=== PATIENT | male | born 1975 | race Caucasian/White ===

== ENCOUNTER 2023-10-08 20:49 | Emergency (ER) | payer BC, OTHER ==
[2023-10-08] MEDS ORDERED: TETRACAINE HCL 0.5% 4ML OPTH ONE (22:20)
[2023-10-08] MEDS ORDERED: FLUORESCEIN SODIUM 1 MG/WRAP ONE (22:20)
--- NOTE | 2023-10-08 22:33 | ER ---
Nurse's Notes [facility] Name: Celio Damon II Age: 48 yrs Sex: Male : 1975 Arrival Date: 10/08/2023 Time: 20:49 Bed 10 Private MD: Diagnosis: Corneal abrasion of right eye Presentation: 10/07 22:27 Chief complaint: Patient states: right eye pain, redness and swelling X3 hours after lg3 mowing. Coronavirus screen: Client denies travel out of the [place] in the last 14 days. At this time, the client does not indicate any symptoms associated with coronavirus-19. Ebola Screen: No symptoms or risks identified at this time. Mechanism of Injury: No Mechanism of Injury. The patient denies any loss of vision. Initial Sepsis Screen: Does the patient meet any 2 criteria? No. Patient's initial sepsis screen is negative. Does the patient have a suspected source of infection? No. Patient's initial sepsis screen is negative. Risk Assessment: Do you want to hurt yourself or someone else? Patient reports no desire to harm self or others. Onset of symptoms was October 08, 2023. 22:27 Method Of Arrival: Ambulatory lg3 22:27 Acuity: MILI 5 lg3 Triage Assessment: 22:28 General: Appears in no apparent distress. uncomfortable, Behavior is calm, cooperative. lg3 Pain: Complains of pain in right eye. EENT: Eyes are tearing on right eye Sclera/Cornea are reddened in right eye Reports blurred vision. Neuro: No deficits noted. Ahuja Agitation-Sedation Scale (RASS): 0 - Alert and Calm Level of Consciousness is awake, alert, obeys commands, Oriented to person, place, time, situation. Cardiovascular: No deficits noted. Denies chest pain, shortness of breath, Capillary refill < 3 seconds Clubbing of nail beds is absent JVD is absent Patient's skin is warm and dry. Respiratory: No deficits noted. Airway is patent Respiratory effort is even, unlabored, Respiratory pattern is regular, symmetrical. GI: No deficits noted. No signs and/or symptoms were reported involving the gastrointestinal system. : No deficits noted. No signs and/or symptoms were reported regarding the genitourinary system. Derm: No deficits noted. No signs and/or symptoms reported regarding the dermatologic system. Skin is intact, is healthy with good turgor, Skin is dry, Skin is normal, Skin temperature is warm. Musculoskeletal: No deficits noted. No signs and/or symptoms reported regarding the musculoskeletal system. Circulation, motion, and sensation intact. Range of motion: intact in all extremities. Historical: - Allergies: 22:28 No Known Allergies; lg3 - Home Meds: 22:28 None [Active]; lg3 - PMHx: 22:28 None; lg3 - PSHx: 22:28 None; lg3 - Immunization history:: Adult Immunizations up to date, Client reports receiving the 2nd dose of the Covid vaccine, Flu vaccine is not up to date. - Social history:: Smoking status: Patient denies any tobacco usage or history of. Patient/guardian denies using alcohol, street drugs. - Family history:: not pertinent. Screenin:30 [facility] ED Fall Risk Assessment (Adult) History of falling in the last 3 months, lg3 including since admission No falls in past 3 months (0 pts). Abuse screen: Denies threats or abuse. Denies injuries from another. Nutritional screening: No deficits noted. Tuberculosis screening: No symptoms or risk factors identified. Assessment: 22:30 General: see triage assessment. lg3 Vital Signs: 22:27 BP 129 / 87; Pulse 82; Resp 18 S; Temp 97.8(O); Pulse Ox 99% on R/A; Weight 116.57 kg lg3 (R); Height 6 ft. 0 in. (R); Pain 7/10; 22:27 Body Mass Index 34.86 (116.57 kg, 182.88 cm) lg3 22:27 Pain Scale: Adult lg3 ED Course: 20:52 Patient arrived in ED. ra3 20:54 Ken Murphy MD is Attending Physician. rt 20:54 Marcel[facility]C [facility] kb 22:27 Jovita Joe RN is Primary Nurse. lg3 22:28 Triage completed. lg3 22:28 Arm band placed on right wrist. lg3 22:30 Patient has correct armband on for positive identification. Bed in low position. Call 3 light in reach. Client placed on continuous cardiac and pulse oximetry monitoring. NIBP monitoring applied. Door closed. Noise minimized. Warm blanket given. 22:30 Assist provider with eye exam of right eye. using fluorescein stain, Performed by Ken Murphy MD Patient tolerated well. Patient did not have IV access during this emergency room visit. Administered Medications: 22:36 Drug: Tetracaine Ophthalmic Drops 0.5 % 1 drops Ophthalmic once Route: Ophthalmic; lg3 Site: right eye; Medication: 22:30 VIS not applicable for this client. lg3 Outcome: 22:32 Discharge ordered by MD. rt 22:37 Discharged to home ambulatory, lg3 22:37 Condition: stable 22:37 Discharge instructions given to patient, Instructed on discharge instructions, follow up and referral plans. medication usage, Demonstrated understanding of instructions, follow-up care, medications, Prescriptions given X 1, :37 Patient left the ED. lg3 Signatures: Marcelina Tong, WALT-Last GODOY-Jovita Perez RN RN [email or web address] Ken Murphy MD MD rt Clara Arreola 3
--- NOTE | 2023-10-08 22:33 | EDPHYS ---
Physician Documentation [facility] Name: Celio Damon II Age: 48 yrs Sex: Male : 1975 Arrival Date: 10/08/2023 Time: 20:49 Bed 10 Private MD: ED Physician Ken Murphy HPI: 10/08 02:11 This 48 yrs old Male presents to ER via Ambulatory with complaints of Eye Injury. rt 02:11 Patient presents to the ED with injury to the right eye. Patient states that he was rt doing yard work today, states that something hit his eye, after he rubbed it developed pain. Patient denies discharge. Denies other acute complaints, symptoms are mild in severity, no other aggravating or alleviating factors.. Historical: - Allergies: 10/07 22:28 No Known Allergies; lg3 - Home Meds: 22:28 None [Active]; lg3 - PMHx: 22:28 None; lg3 - PSHx: 22:28 None; lg3 - Immunization history:: Adult Immunizations up to date, Client reports receiving the 2nd dose of the Covid vaccine, Flu vaccine is not up to date. - Social history:: Smoking status: Patient denies any tobacco usage or history of. Patient/guardian denies using alcohol, street drugs. - Family history:: not pertinent. ROS: 10/08 02:11 Constitutional: Negative for fever, chills, and weight loss, Cardiovascular: Negative rt for chest pain, palpitations, and edema, Respiratory: Negative for shortness of breath, cough, wheezing, and pleuritic chest pain, Abdomen/GI: Negative for abdominal pain, nausea, vomiting, diarrhea, and constipation, Skin: Negative for injury, rash, and discoloration, Neuro: Negative for headache, weakness, numbness, tingling, and seizure, Eyes: Positive for pain, Negative for redness, Exam: 02:11 Constitutional: This is a well developed, well nourished patient who is awake, alert, rt and in no acute distress. Head/Face: Normocephalic, atraumatic. Chest/axilla: Normal chest wall appearance and motion. Nontender with no deformity. No lesions are appreciated. Cardiovascular: Regular rate and rhythm with a normal S1 and S2. No gallops, murmurs, or rubs. Normal PMI, no JVD. No pulse deficits. Respiratory: Lungs have equal breath sounds bilaterally, clear to auscultation and percussion. No rales, rhonchi or wheezes noted. No increased work of breathing, no retractions or nasal flaring. Abdomen/GI: Soft, non-tender, with normal bowel sounds. No distension or tympany. No guarding or rebound. No evidence of tenderness throughout. Skin: Warm, dry with normal turgor. Normal color with no rashes, no lesions, and no evidence of cellulitis. MS/ Extremity: Pulses equal, no cyanosis. Neurovascular intact. Full, normal range of motion. Neuro: Awake and alert, GCS 15, oriented to person, place, time, and situation. Cranial nerves II-XII grossly intact. Motor strength 5/5 in all extremities. Sensory grossly intact. Cerebellar exam normal. Normal gait. 02:11 Eyes: Extraocular muscle intact, pupils weakly round reactive to light, minimal injection of the right conjunctiva. There is skin tear fluorescein uptake, Sindi sign is negative. Vital Signs: 10/07 22:27 BP 129 / 87; Pulse 82; Resp 18 S; Temp 97.8(O); Pulse Ox 99% on R/A; Weight 116.57 kg lg3 (R); Height 6 ft. 0 in. (R); Pain 7/10; 22:27 Body Mass Index 34.86 (116.57 kg, 182.88 cm) lg3 22:27 Pain Scale: Adult lg3 MDM: 22:17 Patient medically screened. rt 10/08 02:11 Differential diagnosis: Corneal abrasion of. Data reviewed: vital signs, nurses notes. rt Counseling: I had a detailed discussion with the patient and/or guardian regarding the historical points, exam findings, and any diagnostic results supporting the discharge/admit diagnosis, the need for outpatient follow up, to return to the emergency department if symptoms worsen or persist or if there are any questions or concerns that arise at home. Response to treatment: the patient's symptoms have markedly improved after treatment. 10/07 22:31 Order name: Eye Tray; Complete Time: 22:37 rt 10/07 22:31 Order name: Fluoresene Opth strip; Complete Time: 22:37 rt Administered Medications: 10/07 22:36 Drug: Tetracaine Ophthalmic Drops 0.5 % 1 drops Ophthalmic once Route: Ophthalmic; lg3 Site: right eye; Disposition Summary: 10/08/23 22:32 Discharge Ordered Notes: Location: Home rt Problem: new rt Symptoms: have improved rt Condition: Stable rt Diagnosis - Corneal abrasion of right eye rt Followup: rt - With: Private Physician - When: 2 - 3 days - Reason: Discharge Instructions: - Discharge Summary Sheet rt - Corneal Abrasion rt Forms: - Medication Reconciliation Form rt - Thank You Letter rt - Antibiotic Education rt - Prescription Opioid Use rt - Patient Portal Instructions rt - Leadership Thank You Letter rt Prescriptions: - Erythromycin 5 mg/gram (0.5 %) Ophthalmic ointment - apply 1 centimeter OPHTHALMIC route 2-3 times daily for 7 days; 1 Each; rt Refills: 0, Product Selection Permitted Signatures: Jovita Joe RN RN lg3 Ken Murphy MD MD rt
[2023-10-08 22:46] VITALS: BP 129/87; TEMP 97.8; O2SAT 99
== END 2023-10-08 22:37 | disposition home or self-care (01) ==
LOC: ER 20:49
DX: S05.01XA Injury of conjunctiva and corneal abrasion without foreign body, right eye, initial encounter (principal)
CPT/HCPCS: 99284